=== PATIENT | female | born 1960 | race Caucasian/White ===

== ENCOUNTER 2021-06-23 22:51 | Emergency (ER) | payer MEDICAID ==
[~2021-06-23] VITALS: Ht 157.5 cm; Wt 81.6 kg
[2021-06-23 23:00] VITALS: BP_SYST 143
--- NOTE | 2021-06-23 23:00 | NUR ---
ER examining patient in [facility].
--- NOTE | 2021-06-23 23:00 | NUR ---
Patient triaged and placed in waiting room. VSS and patient appears in no acute distress at this time. Accompanied by FAM MEMBER, awaiting available bed, and MD notified of need for MSE.
[2021-06-24 00:27] LABS: CALCIUM 8.8 mg/dL (8.4-11.0); CREATININE 0.7 mg/dL (0.55-1.30); POTASSIUM 3.6 mmol/L (3.5-5.1)
[2021-06-24 00:36] LABS: BASOPHILS % (AUTO) 0.7 % (0.0-2.0); EOSINOPHILS # (AUTO) 0.1 K/uL (0.0-0.4); EOSINOPHILS % (AUTO) 2.4 % (0.0-4.0); HEMATOCRIT 44.1 % (36-48); HEMOGLOBIN 15.1 g/dL (12.0-16.0); LYMPHOCYTES % (AUTO) 15.7 % (20.5-51.5); MEAN CORPUSCULAR HEMOGLOBIN 30 pg (27-31); MEAN CORPUSCULAR HGB CONC 34 % (32-36); MEAN CORPUSCULAR VOLUME 87 fL (79.0-98.0); MONOCYTES # (AUTO) 0.8 K/uL (0.0-1.0); MONOCYTES % (AUTO) 12.1 % (1.7-9.3); NEUTROPHILS # (AUTO) 4.4 K/uL (1.8-7.7); NEUTROPHILS % (AUTO) 69.1 % (40.0-70.0); PLATELET COUNT (AUTO) 122 K/uL (130-430); RED BLOOD CELL COUNT(AUTO) 5.08 MIL/uL (4.2-6.2); RED CELL DISTRIBUTION WIDTH 13.9 % (9.0-15.0); WHITE BLOOD COUNT (AUTO) 6.3 K/uL (4.8-10.8)
[2021-06-24] MEDS ORDERED: cefTRIAXone 1 GM in LIDOCAINE 1%, 20 ML MDV 2.1 ML IM ONE (03:00)
[2021-06-24 03:31] LABS: BILIRUBIN,URINE NEGATIVE (NEGATIVE); BLOOD, URINE TRACE (NEGATIVE); CLARITY/URINE CLEAR (CLEAR); COLOR,URINE YELLOW (YELLOW); GLUCOSE,URINE 3+ (NEGATIVE); KETONES,URINE NEGATIVE (NEGATIVE); LEUKOCYTE ESTERASE ,URINE NEGATIVE (NEGATIVE); NITRITE, URINE NEGATIVE (NEGATIVE); PROTEIN URINE 1+ (NEGATIVE)
[2021-06-24 03:46] LABS: BACTERIA,URINE RARE /HPF (None Seen); WBC,URINE 0-3 /HPF (0-3)
[2021-06-24 03:47] LABS: MUCUS,URINE None Seen /LPF (None Seen)
[2021-06-24] MEDS ORDERED: CEPH-548 PO (04:02)
[2021-06-24] MEDS ORDERED: NAPR-690 PO (04:12)
--- NOTE | 2021-06-24 04:20 | NUR ---
Note undone in EDM - 06/24/21 at 0539 by [email or web address] Patient given written and verbal discharge instructions by Dr Waterman and verbalizes understanding. ER discussed with patient the results and treatment provided. Patient in stable condition. ID arm band removed. Rx of Cephalexin given. Patient educated on pain management and to follow up with PMD. Pain Scale 0/10. Opportunity for questions provided and answered. Medication side effect fact sheet provided.
--- NOTE | 2021-06-24 04:20 | NUR ---
Patient given written and verbal discharge instructions by Dr Waterman and verbalizes understanding. ER MD discussed with patient the results and treatment provided. Patient in stable condition. ID arm band removed. Rx of Cephalexin given. Patient educated on pain management and to follow up with PMD. Pain Scale 5/10. Opportunity for questions provided and answered. Medication side effect fact sheet provided.
[2021-06-24 04:22] VITALS: BP_SYST 139
== END 2021-06-24 04:20 | disposition home or self-care (01) ==
LOC: SED 22:51
DX: M17.11 Unilateral primary osteoarthritis, right knee (principal); M25.561 Pain in right knee; L03.116 Cellulitis of left lower limb; L03.115 Cellulitis of right lower limb; R60.0 Localized edema; E11.65 Type 2 diabetes mellitus with hyperglycemia; I11.0 Hypertensive heart disease with heart failure; I50.9 Heart failure, unspecified; J44.9 Chronic obstructive pulmonary disease, unspecified
CPT/HCPCS: 36415; 71045; 73560; 80053; 81000; 82550; 83880; 84484; 85025; 87040; 96372; 99284; J0696; J2001

== ENCOUNTER 2023-07-20 13:13 | Inpatient (IN) | payer MEDICAID, OTHER ==
[~2023-07-20] VITALS: Ht 157.5 cm; Wt 77.4 kg
[~2023-07-20 13:13] MED LIST: CEPH-548 PO; NAPR-690 PO
[2023-07-20 13:38] VITALS: BP_SYST 111; PULSE 100; RESP 20; TEMP 97; O2SAT 99
[2023-07-20] MEDS ORDERED: OXYB5TAB16 PO (13:38)
[2023-07-20] MEDS ORDERED: METO-540 PO (13:38)
[2023-07-20] MEDS ORDERED: INSU100I26 SUBCUT (13:38)
[2023-07-20] MEDS ORDERED: SERT-436 PO (13:38)
[2023-07-20] MEDS ORDERED: [UNRECOGNIZED DRUG - CODE] (13:38)
[2023-07-20] MEDS ORDERED: DAPA10TA PO (13:38)
[2023-07-20] MEDS ORDERED: GLIP5TAB13 PO (13:38)
[2023-07-20] MEDS: NACL 0.9% 1,000 ML IV SCH (14:00)
[2023-07-20 14:18] LABS: BASOPHILS % (AUTO) 0.1 % (0.0-2.0); EOSINOPHILS # (AUTO) 0.1 K/uL (0.0-0.4); EOSINOPHILS % (AUTO) 0.7 % (0.0-4.0); HEMATOCRIT 48.8 % (36-48); HEMOGLOBIN 15.8 g/dL (12.0-16.0); LYMPHOCYTES # (AUTO) 0.7 K/uL (1.0-5.5); LYMPHOCYTES % (AUTO) 7.8 % (20.5-51.5); MEAN CORPUSCULAR HEMOGLOBIN 29 pg (27-31); MEAN CORPUSCULAR HGB CONC 32 % (32-36); MEAN CORPUSCULAR VOLUME 90 fL (79.0-98.0); MONOCYTES # (AUTO) 0.6 K/uL (0.0-1.0); MONOCYTES % (AUTO) 5.9 % (1.7-9.3); NEUTROPHILS # (AUTO) 8.1 K/uL (1.8-7.7); NEUTROPHILS % (AUTO) 85.5 % (40.0-70.0); PLATELET COUNT (AUTO) 120 K/uL (130-430); RED BLOOD CELL COUNT(AUTO) 5.43 MIL/uL (4.2-6.2); RED CELL DISTRIBUTION WIDTH 15.7 % (9.0-15.0); WHITE BLOOD COUNT (AUTO) 9.4 K/uL (4.8-10.8)
[2023-07-20 14:49] LABS: ALBUMIN 2.3 g/dL (3.4-4.8); CALCIUM 9.2 mg/dL (8.4-11.0); CREATININE 1.4 mg/dL (0.55-1.30); POTASSIUM 3.6 mmol/L (3.5-5.1); TOTAL BILIRUBIN 0.9 mg/dL (0.0-1.0); TOTAL PROTEIN, SERUM 6.9 g/dL (6.4-8.3)
[2023-07-20] MEDS: INSULIN REGULAR, HUMAN 10 UNITS/0.1 ML, 3 ML VIAL IVP ONE ×2 (15:25→21:46)
[2023-07-20] MEDS: CLINDAMYCIN 600 MG in D5W 50 ML IV ONE (16:46)
[2023-07-20 19:02] LABS: BILIRUBIN,URINE NEGATIVE (NEGATIVE); COLOR,URINE YELLOW (YELLOW); GLUCOSE,URINE 3+ (NEGATIVE); KETONES,URINE NEGATIVE (NEGATIVE); LEUKOCYTE ESTERASE ,URINE 1+ (NEGATIVE); NITRITE, URINE NEGATIVE (NEGATIVE); PROTEIN URINE NEGATIVE (NEGATIVE); UROBILINOGEN,URINE 0.2 (0.2-1.0)
[2023-07-20] MEDS ORDERED: INSULIN REGULAR, HUMAN 10 UNITS/0.1 ML, 3 ML VIAL ONE ×2 (19:02→21:42)
[2023-07-20] MEDS: INSULIN REGULAR, HUMAN 100 UNITS/ML, 3 ML VIAL (humuLIN R) SUBCUT PRN (19:03)
[2023-07-20 19:09] LABS: BLOOD, URINE TRACE (NEGATIVE)
[2023-07-20 19:10] LABS: BACTERIA,URINE FEW /HPF (None Seen); CLARITY/URINE HAZY (CLEAR); RBC,URINE 0-3 /HPF (0-3)
[2023-07-20 19:11] LABS: MUCUS,URINE None Seen /LPF (None Seen); YEAST,URINE Few /HPF (None Seen)
[2023-07-20] MEDS ORDERED: ACETAMINOPHEN 325 MG TABLET PO PRN (22:00)
[2023-07-20] MEDS ORDERED: HYDROcodone/ACETAMIN 10-325 MG TAB PO PRN (22:00)
[2023-07-20] MEDS ORDERED: HYDROcodone/ACETAMIN 5-325 MG TAB (NORCO/ VICODIN) PO PRN (22:00)
[2023-07-20] MEDS ORDERED: LORazepam 2 MG/ML VIAL IVP PRN (22:00)
[2023-07-20] MEDS ORDERED: ONDANSETRON HCL 4 MG/2 ML VIAL IVP PRN (22:00)
[2023-07-20] MEDS ORDERED: NALOXONE HCL 0.4 MG/ML AMP (NARCAN) IVP PRN ×2 (22:00)
[2023-07-21 03:02] VITALS: BP_SYST 107; PULSE 86; RESP 16; TEMP 97.8; O2SAT 99
[2023-07-21 04:19] LABS: BASOPHILS % (AUTO) 0.1 % (0.0-2.0); EOSINOPHILS # (AUTO) 0.3 K/uL (0.0-0.4); EOSINOPHILS % (AUTO) 1.9 % (0.0-4.0); HEMATOCRIT 44.2 % (36-48); LYMPHOCYTES # (AUTO) 0.9 K/uL (1.0-5.5); LYMPHOCYTES % (AUTO) 5.9 % (20.5-51.5); MEAN CORPUSCULAR HEMOGLOBIN 29 pg (27-31); MEAN CORPUSCULAR HGB CONC 34 % (32-36); MEAN CORPUSCULAR VOLUME 85 fL (79.0-98.0); MONOCYTES # (AUTO) 0.9 K/uL (0.0-1.0); NEUTROPHILS # (AUTO) 13.4 K/uL (1.8-7.7); NEUTROPHILS % (AUTO) 86.1 % (40.0-70.0); PLATELET COUNT (AUTO) 109 K/uL (130-430); RED BLOOD CELL COUNT(AUTO) 5.19 MIL/uL (4.2-6.2); RED CELL DISTRIBUTION WIDTH 15.1 % (9.0-15.0); WHITE BLOOD COUNT (AUTO) 15.5 K/uL (4.8-10.8)
[2023-07-21] MEDS: CLINDAMYCIN 600 MG in D5W 50 ML IV ONE (04:27)
[2023-07-21] MEDS: CLINDAMYCIN 600 mg/50mL D5W 50 ML IV ONE (04:41)
[2023-07-21 04:59] LABS: CALCIUM 9.3 mg/dL (8.4-11.0); CREATININE 0.84 mg/dL (0.55-1.30); POTASSIUM 3.5 mmol/L (3.5-5.1)
[2023-07-21] MEDS: metFORMIN HCL 500 MG TABLET PO SCH (08:00)
[2023-07-21] MEDS ORDERED: NON-FORMULARY MEDICATION (Dapagliflozin Propanediol (Farxiga) 1 TAB) PO SCH (09:00)
[2023-07-21 09:02] VITALS: BP_SYST 111; PULSE 71; RESP 18; TEMP 97.7; O2SAT 96
[2023-07-21] MEDS: METOPROLOL SUCCINATE 25 MG TAB.SR.24H (TOPROL XL) PO SCH (10:39)
[2023-07-21] MEDS: SERTRALINE HCL 50 MG TABLET PO SCH (10:39)
[2023-07-21] MEDS: oxyBUTYnin chloride 5 MG TABLET PO SCH (10:39)
[2023-07-21] MEDS: INSULIN GLARGINE 100 UNITS/ML, 10 ML VIAL SUBCUT SCH (10:43)
[2023-07-21 11:20] VITALS: BP_SYST 106; PULSE 68; RESP 16; TEMP 96.9; O2SAT 97
[2023-07-21] MEDS: EMPAGLIFLOZIN 10 MG TABLET PO SCH (12:05)
[2023-07-21] MEDS ORDERED: CALC1CAP19 PO (12:16)
[2023-07-21] MEDS: CLINDAMYCIN 600 MG in D5W 50 ML IV SCH (12:18)
[2023-07-21 15:24] VITALS: BP_SYST 110; PULSE 82; RESP 16; TEMP 97.1; O2SAT 96
[2023-07-21 20:00] VITALS: BP_SYST 108; PULSE 82; RESP 20; TEMP 97.8; O2SAT 97
[2023-07-22 01:21] VITALS: BP_SYST 110; PULSE 78; RESP 17; TEMP 97; O2SAT 98
[2023-07-22] MEDS: cefTRIAXone 1 GM VIAL ONE (04:38)
[2023-07-22] MEDS: cefTRIAXone 1 GM in D5W 50 ML IV SCH (04:46)
[2023-07-22 06:08] LABS: BASOPHILS % (AUTO) 0.1 % (0.0-2.0); EOSINOPHILS # (AUTO) 0.2 K/uL (0.0-0.4); EOSINOPHILS % (AUTO) 1.5 % (0.0-4.0); HEMATOCRIT 44.8 % (36-48); HEMOGLOBIN 14.9 g/dL (12.0-16.0); LYMPHOCYTES % (AUTO) 8.8 % (20.5-51.5); MEAN CORPUSCULAR HEMOGLOBIN 29 pg (27-31); MEAN CORPUSCULAR HGB CONC 33 % (32-36); MEAN CORPUSCULAR VOLUME 86 fL (79.0-98.0); MONOCYTES # (AUTO) 1.1 K/uL (0.0-1.0); MONOCYTES % (AUTO) 9.2 % (1.7-9.3); NEUTROPHILS # (AUTO) 9.4 K/uL (1.8-7.7); NEUTROPHILS % (AUTO) 80.4 % (40.0-70.0); PLATELET COUNT (AUTO) 118 K/uL (130-430); RED BLOOD CELL COUNT(AUTO) 5.18 MIL/uL (4.2-6.2); RED CELL DISTRIBUTION WIDTH 15.7 % (9.0-15.0); WHITE BLOOD COUNT (AUTO) 11.7 K/uL (4.8-10.8)
[2023-07-22 08:00] VITALS: BP_SYST 109; PULSE 74; RESP 16; TEMP 98; O2SAT 100
[2023-07-22 08:07] LABS: ERYTHROCYTE SEDIMENTATION RATE 34 MM/HR (0-20)
[2023-07-22 08:21] LABS: CALCIUM 7.8 mg/dL (8.4-11.0); CREATININE 0.78 mg/dL (0.55-1.30)
[2023-07-22 20:00] VITALS: O2SAT 95
[2023-07-23 00:57] VITALS: BP_SYST 121; PULSE 63; RESP 18; TEMP 96.7; O2SAT 91
[2023-07-23 07:18] LABS: BARBITURATE, URINE NEGATIVE (NEG <=200); BENZODIAZEPINE, URINE NEGATIVE (NEG <=150); CANNABINOID, URINE NEGATIVE (NEG <=50); COCAINE, URINE NEGATIVE (NEG <=150); METHAMPHETAMINES SCREEN,URINE POSITIVE (NEG <=500); OPIATE, URINE NEGATIVE (NEG <=100); PHENCYCLIDINE SCREEN,URINE NEGATIVE (NEG <=25); URINE AMPHETAMINE NEGATIVE (NEG <=500); URINE METHADONE NEGATIVE (NEG <=200); URINE OXYCODONE SCREEN NEGATIVE (NEG <=100)
[2023-07-23 07:19] LABS: UR TRICYCLIC ANTIDEPRESSANTS NEGATIVE (NEG <=300)
[2023-07-23 08:00] VITALS: O2SAT 94
[2023-07-23 10:20] LABS: CREATININE 0.81 mg/dL (0.55-1.30); POTASSIUM 3.8 mmol/L (3.5-5.1)
[2023-07-23 10:21] LABS: BASOPHILS # (AUTO) 0.1 K/uL (0.0-0.2); BASOPHILS % (AUTO) 0.6 % (0.0-2.0); EOSINOPHILS # (AUTO) 0.2 K/uL (0.0-0.4); HEMATOCRIT 42.7 % (36-48); HEMOGLOBIN 14.2 g/dL (12.0-16.0); LYMPHOCYTES % (AUTO) 8.8 % (20.5-51.5); MEAN CORPUSCULAR HEMOGLOBIN 29 pg (27-31); MEAN CORPUSCULAR HGB CONC 33 % (32-36); MEAN CORPUSCULAR VOLUME 87 fL (79.0-98.0); MONOCYTES % (AUTO) 8.9 % (1.7-9.3); NEUTROPHILS # (AUTO) 8.9 K/uL (1.8-7.7); NEUTROPHILS % (AUTO) 79.7 % (40.0-70.0); PLATELET COUNT (AUTO) 85 K/uL (130-430); RED BLOOD CELL COUNT(AUTO) 4.93 MIL/uL (4.2-6.2); RED CELL DISTRIBUTION WIDTH 15.5 % (9.0-15.0); WHITE BLOOD COUNT (AUTO) 11.1 K/uL (4.8-10.8)
[2023-07-23 11:16] VITALS: BP_SYST 122; PULSE 52; RESP 16; TEMP 97; O2SAT 100
[2023-07-23 15:57] VITALS: BP_SYST 124; PULSE 59; RESP 18; TEMP 97.4; O2SAT 99
[2023-07-23] MEDS: NORMAL SALINE 5 ML DISP.SYRIN IVF SCH (17:08)
[2023-07-23 20:00] VITALS: BP_SYST 115; PULSE 74; RESP 18; TEMP 97.8; O2SAT 97
[2023-07-24] VITALS (7 sets, daily range): BP systolic 109–126; PULSE 61–89; RESP 18–20; TEMP 96.6–98.4; O2SAT 96–99
[2023-07-24 08:03] LABS: BASOPHILS % (AUTO) 0.3 % (0.0-2.0); EOSINOPHILS # (AUTO) 0.2 K/uL (0.0-0.4); HEMATOCRIT 46.1 % (36-48); HEMOGLOBIN 15.4 g/dL (12.0-16.0); LYMPHOCYTES # (AUTO) 1.2 K/uL (1.0-5.5); LYMPHOCYTES % (AUTO) 10.7 % (20.5-51.5); MEAN CORPUSCULAR HEMOGLOBIN 29 pg (27-31); MEAN CORPUSCULAR HGB CONC 33 % (32-36); MEAN CORPUSCULAR VOLUME 88 fL (79.0-98.0); MONOCYTES # (AUTO) 1.2 K/uL (0.0-1.0); MONOCYTES % (AUTO) 10.6 % (1.7-9.3); NEUTROPHILS # (AUTO) 8.3 K/uL (1.8-7.7); NEUTROPHILS % (AUTO) 76.4 % (40.0-70.0); PLATELET COUNT (AUTO) 106 K/uL (130-430); RED BLOOD CELL COUNT(AUTO) 5.25 MIL/uL (4.2-6.2); RED CELL DISTRIBUTION WIDTH 15.8 % (9.0-15.0); WHITE BLOOD COUNT (AUTO) 10.9 K/uL (4.8-10.8)
[2023-07-24 08:16] LABS: ERYTHROCYTE SEDIMENTATION RATE 62 MM/HR (0-20)
[2023-07-24 08:17] LABS: CALCIUM 8.7 mg/dL (8.4-11.0); CREATININE 0.79 mg/dL (0.55-1.30); PHOSPHORUS 2.8 mg/dL (2.7-4.5); POTASSIUM 4.6 mmol/L (3.5-5.1); TOTAL BILIRUBIN 0.7 mg/dL (0.0-1.0); TOTAL PROTEIN, SERUM 6.8 g/dL (6.4-8.3)
[2023-07-24] MEDS: CHOLECALCIFEROL (VITAMIN D3) 5,000 UNIT TABLET PO ONE (10:57)
[2023-07-25] VITALS: BP_SYST 106; PULSE 86; RESP 18; TEMP 97.7; O2SAT 99
[2023-07-25 04:00] VITALS: BP_SYST 122; PULSE 89; RESP 20; TEMP 97.7; O2SAT 98
[2023-07-25 07:09] LABS: BASOPHILS % (AUTO) 0.4 % (0.0-2.0); EOSINOPHILS # (AUTO) 0.3 K/uL (0.0-0.4); EOSINOPHILS % (AUTO) 2.5 % (0.0-4.0); HEMATOCRIT 41.2 % (36-48); HEMOGLOBIN 13.7 g/dL (12.0-16.0); LYMPHOCYTES # (AUTO) 1.1 K/uL (1.0-5.5); LYMPHOCYTES % (AUTO) 10.9 % (20.5-51.5); MEAN CORPUSCULAR HEMOGLOBIN 29 pg (27-31); MEAN CORPUSCULAR HGB CONC 33 % (32-36); MEAN CORPUSCULAR VOLUME 87 fL (79.0-98.0); MONOCYTES # (AUTO) 1.4 K/uL (0.0-1.0); MONOCYTES % (AUTO) 13.7 % (1.7-9.3); NEUTROPHILS # (AUTO) 7.6 K/uL (1.8-7.7); NEUTROPHILS % (AUTO) 72.5 % (40.0-70.0); PLATELET COUNT (AUTO) 128 K/uL (130-430); RED BLOOD CELL COUNT(AUTO) 4.75 MIL/uL (4.2-6.2); RED CELL DISTRIBUTION WIDTH 15.7 % (9.0-15.0); WHITE BLOOD COUNT (AUTO) 10.5 K/uL (4.8-10.8)
[2023-07-25 07:14] LABS: ERYTHROCYTE SEDIMENTATION RATE 45 MM/HR (0-20)
[2023-07-25 07:21] LABS: CALCIUM 8.2 mg/dL (8.4-11.0); CREATININE 0.65 mg/dL (0.55-1.30); POTASSIUM 3.8 mmol/L (3.5-5.1)
[2023-07-25 08:12] VITALS: BP_SYST 125; PULSE 73; RESP 20; TEMP 96.1; O2SAT 96
[2023-07-25] MEDS ORDERED: INSULIN GLARGINE 100 UNITS/ML, 10 ML VIAL SUBCUT SCH (09:00)
[2023-07-25] MEDS: CHOLECALCIFEROL (VITAMIN D3) 5,000 UNIT TABLET PO SCH (09:42)
[2023-07-25] MEDS: INSULIN GLARGINE 100 UNITS/ML, 10 ML VIAL SUBCUT SCH (10:50)
[2023-07-25 11:29] VITALS: BP_SYST 126; PULSE 80; RESP 17; TEMP 97.6; O2SAT 100
[2023-07-25 16:48] VITALS: BP_SYST 146; PULSE 83; RESP 16; TEMP 98; O2SAT 96
[2023-07-25 20:00] VITALS: BP_SYST 106; BP_SYST 126; PULSE 65; PULSE 89; RESP 18; TEMP 97.7; O2SAT 99
[2023-07-26] VITALS (7 sets, daily range): BP systolic 108–137; PULSE 63–86; RESP 18–20; TEMP 96.2–98.1; O2SAT 97–100
[2023-07-26 07:09] LABS: ERYTHROCYTE SEDIMENTATION RATE 54 MM/HR (0-20)
[2023-07-26 07:14] LABS: BASOPHILS % (AUTO) 0.5 % (0.0-2.0); EOSINOPHILS # (AUTO) 0.1 K/uL (0.0-0.4); EOSINOPHILS % (AUTO) 1.4 % (0.0-4.0); HEMATOCRIT 41.7 % (36-48); LYMPHOCYTES % (AUTO) 10.8 % (20.5-51.5); MEAN CORPUSCULAR HEMOGLOBIN 29 pg (27-31); MEAN CORPUSCULAR HGB CONC 34 % (32-36); MEAN CORPUSCULAR VOLUME 87 fL (79.0-98.0); MONOCYTES # (AUTO) 1.2 K/uL (0.0-1.0); MONOCYTES % (AUTO) 13.6 % (1.7-9.3); NEUTROPHILS # (AUTO) 6.6 K/uL (1.8-7.7); NEUTROPHILS % (AUTO) 73.7 % (40.0-70.0); PLATELET COUNT (AUTO) 123 K/uL (130-430); RED BLOOD CELL COUNT(AUTO) 4.81 MIL/uL (4.2-6.2); RED CELL DISTRIBUTION WIDTH 15.1 % (9.0-15.0)
[2023-07-26 07:18] LABS: CALCIUM 7.8 mg/dL (8.4-11.0); CREATININE 0.54 mg/dL (0.55-1.30)
[2023-07-26] MEDS: INSULIN GLARGINE 100 UNITS/ML, 10 ML VIAL SUBCUT SCH (09:25)
[2023-07-27] VITALS (8 sets, daily range): BP systolic 108–132; PULSE 72–86; RESP 16–19; TEMP 97.2–98.1; O2SAT 91–100
[2023-07-27 06:18] LABS: ERYTHROCYTE SEDIMENTATION RATE 35 MM/HR (0-20)
[2023-07-27 06:31] LABS: BASOPHILS % (AUTO) 0.5 % (0.0-2.0); EOSINOPHILS # (AUTO) 0.2 K/uL (0.0-0.4); HEMATOCRIT 40.7 % (36-48); HEMOGLOBIN 13.6 g/dL (12.0-16.0); LYMPHOCYTES # (AUTO) 1.5 K/uL (1.0-5.5); LYMPHOCYTES % (AUTO) 16.1 % (20.5-51.5); MEAN CORPUSCULAR HEMOGLOBIN 29 pg (27-31); MEAN CORPUSCULAR HGB CONC 33 % (32-36); MEAN CORPUSCULAR VOLUME 87 fL (79.0-98.0); MONOCYTES # (AUTO) 1.1 K/uL (0.0-1.0); MONOCYTES % (AUTO) 12.5 % (1.7-9.3); NEUTROPHILS # (AUTO) 6.2 K/uL (1.8-7.7); NEUTROPHILS % (AUTO) 68.9 % (40.0-70.0); PLATELET COUNT (AUTO) 149 K/uL (130-430); RED BLOOD CELL COUNT(AUTO) 4.67 MIL/uL (4.2-6.2); RED CELL DISTRIBUTION WIDTH 15.5 % (9.0-15.0); WHITE BLOOD COUNT (AUTO) 9.1 K/uL (4.8-10.8)
[2023-07-27 06:58] LABS: ALBUMIN 1.7 g/dL (3.4-4.8); CALCIUM 8.4 mg/dL (8.4-11.0); CREATININE 0.69 mg/dL (0.55-1.30); POTASSIUM 4.2 mmol/L (3.5-5.1); TOTAL BILIRUBIN 0.7 mg/dL (0.0-1.0); TOTAL PROTEIN, SERUM 6.2 g/dL (6.4-8.3)
[2023-07-27] MEDS: levoFLOXacin 500 MG TABLET PO SCH (10:19)
[2023-07-28] VITALS: BP_SYST 110; PULSE 72; RESP 16; TEMP 97.2; O2SAT 94
[2023-07-28 04:28] LABS: ERYTHROCYTE SEDIMENTATION RATE 44 MM/HR (0-20)
[2023-07-28 04:31] LABS: BASOPHILS # (AUTO) 0.1 K/uL (0.0-0.2); BASOPHILS % (AUTO) 0.7 % (0.0-2.0); EOSINOPHILS # (AUTO) 0.1 K/uL (0.0-0.4); EOSINOPHILS % (AUTO) 1.4 % (0.0-4.0); HEMATOCRIT 40.1 % (36-48); HEMOGLOBIN 13.4 g/dL (12.0-16.0); LYMPHOCYTES # (AUTO) 1.2 K/uL (1.0-5.5); LYMPHOCYTES % (AUTO) 12.8 % (20.5-51.5); MEAN CORPUSCULAR HEMOGLOBIN 29 pg (27-31); MEAN CORPUSCULAR HGB CONC 33 % (32-36); MEAN CORPUSCULAR VOLUME 87 fL (79.0-98.0); MONOCYTES # (AUTO) 1.1 K/uL (0.0-1.0); MONOCYTES % (AUTO) 12.2 % (1.7-9.3); NEUTROPHILS # (AUTO) 6.8 K/uL (1.8-7.7); NEUTROPHILS % (AUTO) 72.9 % (40.0-70.0); PLATELET COUNT (AUTO) 149 K/uL (130-430); RED CELL DISTRIBUTION WIDTH 15.7 % (9.0-15.0); WHITE BLOOD COUNT (AUTO) 9.3 K/uL (4.8-10.8)
[2023-07-28 04:57] LABS: CALCIUM 8.3 mg/dL (8.4-11.0); CREATININE 0.73 mg/dL (0.55-1.30); POTASSIUM 4.2 mmol/L (3.5-5.1)
[2023-07-28 08:21] VITALS: BP_SYST 123; PULSE 75; RESP 12; TEMP 97.5; O2SAT 96
[2023-07-28 10:56] VITALS: O2SAT 96
[2023-07-28 11:27] VITALS: BP_SYST 133; PULSE 74; RESP 16; TEMP 97; O2SAT 99
[2023-07-28 15:12] VITALS: BP_SYST 122; PULSE 71; RESP 16; TEMP 97.6; O2SAT 97
[2023-07-28 20:00] VITALS: BP_SYST 122; PULSE 79; RESP 18; TEMP 97.8; O2SAT 99
[2023-07-29] VITALS: BP_SYST 120; PULSE 74; RESP 18; TEMP 97.5; O2SAT 98
[2023-07-29 06:36] LABS: BASOPHILS # (AUTO) 0.1 K/uL (0.0-0.2); BASOPHILS % (AUTO) 0.8 % (0.0-2.0); EOSINOPHILS # (AUTO) 0.1 K/uL (0.0-0.4); EOSINOPHILS % (AUTO) 1.7 % (0.0-4.0); HEMATOCRIT 40.4 % (36-48); HEMOGLOBIN 13.5 g/dL (12.0-16.0); LYMPHOCYTES % (AUTO) 12.5 % (20.5-51.5); MEAN CORPUSCULAR HEMOGLOBIN 29 pg (27-31); MEAN CORPUSCULAR HGB CONC 33 % (32-36); MEAN CORPUSCULAR VOLUME 87 fL (79.0-98.0); MONOCYTES # (AUTO) 0.8 K/uL (0.0-1.0); MONOCYTES % (AUTO) 10.4 % (1.7-9.3); NEUTROPHILS # (AUTO) 5.7 K/uL (1.8-7.7); NEUTROPHILS % (AUTO) 74.6 % (40.0-70.0); PLATELET COUNT (AUTO) 147 K/uL (130-430); RED BLOOD CELL COUNT(AUTO) 4.64 MIL/uL (4.2-6.2); WHITE BLOOD COUNT (AUTO) 7.6 K/uL (4.8-10.8)
[2023-07-29 07:41] LABS: CALCIUM 8.2 mg/dL (8.4-11.0); CREATININE 0.64 mg/dL (0.55-1.30); POTASSIUM 4.1 mmol/L (3.5-5.1)
[2023-07-29 07:45] LABS: ERYTHROCYTE SEDIMENTATION RATE 48 MM/HR (0-20)
[2023-07-29 08:57] VITALS: BP_SYST 122; PULSE 80; RESP 18; TEMP 97
[2023-07-29 12:38] VITALS: BP_SYST 127; PULSE 82; RESP 18; TEMP 98; O2SAT 99
[2023-07-29 16:30] VITALS: BP_SYST 122; PULSE 86; RESP 18; TEMP 98; O2SAT 99
[2023-07-29 16:56] VITALS: BP_SYST 122; PULSE 86; RESP 18; TEMP 98; O2SAT 98
== END 2023-07-29 17:10 | disposition home or self-care (01) | DRG 871 ==
LOC: SED 13:13 → SMU 16:04
PROVIDERS: ADMIT Preventive Medicine Preventive Medicine/Occupational Environmental Medicine; ATTEND Preventive Medicine Preventive Medicine/Occupational Environmental Medicine
DX: A41.9 Sepsis, unspecified organism (principal); E43 Unspecified severe protein-calorie malnutrition; L03.116 Cellulitis of left lower limb; Z59.00 Homelessness unspecified; N17.9 Acute kidney failure, unspecified; L03.115 Cellulitis of right lower limb; I25.10 Atherosclerotic heart disease of native coronary artery without angina pectoris; J44.9 Chronic obstructive pulmonary disease, unspecified; M81.0 Age-related osteoporosis without current pathological fracture; I11.0 Hypertensive heart disease with heart failure; I50.9 Heart failure, unspecified; E11.65 Type 2 diabetes mellitus with hyperglycemia; E83.52 Hypercalcemia; B96.89 Other specified bacterial agents as the cause of diseases classified elsewhere; Z68.31 Body mass index [BMI] 31.0-31.9, adult; B96.20 Unspecified Escherichia coli [E. coli] as the cause of diseases classified elsewhere; D69.6 Thrombocytopenia, unspecified; I89.0 Lymphedema, not elsewhere classified; K70.30 Alcoholic cirrhosis of liver without ascites; E83.41 Hypermagnesemia; E88.09 Other disorders of plasma-protein metabolism, not elsewhere classified; F32.A Depression, unspecified
CPT/HCPCS: 36415; 71045; 73590; 80048; 80053; 80307; 81000; 81001; 81015; 82306; 82948; 83037; 83605; 83735; 84100; 84443; 85025; 85651; 87040; 87070; 87081; 87086; 87186; 93005; 97110-GP; 97116-GP; 97530-GP; 99285; J0696; J1815; J3490; J7060

== ENCOUNTER 2023-07-29 20:51 | Inpatient (IN) | payer OTHER ==
[~2023-07-29] VITALS: Ht 167.6 cm; Wt 48.3 kg
[~2023-07-29 20:51] MED LIST changes: +CALC1CAP19 PO; -CEPH-548 PO; +DAPA10TA PO; +INSU100I26 SUBCUT; +METO-540 PO; -NAPR-690 PO; +OXYB5TAB16 PO; +SERT-436 PO; +[UNRECOGNIZED DRUG - CODE]
[2023-07-29 21:00] VITALS: BP_SYST 129; PULSE 77; RESP 20; TEMP 98; O2SAT 98
[2023-07-30 00:25] LABS: BASOPHILS # (AUTO) 0.1 K/uL (0.0-0.2); BASOPHILS % (AUTO) 0.6 % (0.0-2.0); EOSINOPHILS # (AUTO) 0.1 K/uL (0.0-0.4); EOSINOPHILS % (AUTO) 0.9 % (0.0-4.0); HEMOGLOBIN 14.4 g/dL (12.0-16.0); LYMPHOCYTES # (AUTO) 0.9 K/uL (1.0-5.5); LYMPHOCYTES % (AUTO) 8.4 % (20.5-51.5); MEAN CORPUSCULAR HEMOGLOBIN 29 pg (27-31); MEAN CORPUSCULAR HGB CONC 33 % (32-36); MEAN CORPUSCULAR VOLUME 87 fL (79.0-98.0); MONOCYTES # (AUTO) 0.9 K/uL (0.0-1.0); MONOCYTES % (AUTO) 9.3 % (1.7-9.3); NEUTROPHILS # (AUTO) 8.3 K/uL (1.8-7.7); NEUTROPHILS % (AUTO) 80.8 % (40.0-70.0); PLATELET COUNT (AUTO) 157 K/uL (130-430); RED BLOOD CELL COUNT(AUTO) 4.93 MIL/uL (4.2-6.2); WHITE BLOOD COUNT (AUTO) 10.2 K/uL (4.8-10.8)
[2023-07-30 00:45] LABS: BILIRUBIN,URINE NEGATIVE (NEGATIVE); BLOOD, URINE NEGATIVE (NEGATIVE); CLARITY/URINE SL CLOUDY (CLEAR); COLOR,URINE YELLOW (YELLOW); GLUCOSE,URINE 3+ (NEGATIVE); KETONES,URINE NEGATIVE (NEGATIVE); NITRITE, URINE NEGATIVE (NEGATIVE); PROTEIN URINE NEGATIVE (NEGATIVE); UROBILINOGEN,URINE 0.2 (0.2-1.0)
[2023-07-30 00:53] LABS: PROTHROMBIN TIME 10.7 SECS (9.5-12.5)
[2023-07-30 01:00] LABS: LEUKOCYTE ESTERASE ,URINE 1+ (NEGATIVE)
[2023-07-30 01:01] LABS: BACTERIA,URINE FEW /HPF (None Seen); RBC,URINE 0-3 /HPF (0-3)
[2023-07-30 01:02] LABS: YEAST,URINE Moderate /HPF (None Seen)
[2023-07-30 01:21] LABS: ALANINE AMINOTRANSFERASE 22 U/L (12-78); ALBUMIN 1.9 g/dL (3.4-4.8); ANION GAP 10 (5-15); ASPARTATE AMINOTRANSFERASE 25 U/L (10-37); CARBON DIOXIDE 22 mmol/L (23-29); CHLORIDE 108 mmol/L (98-107); CREATININE 0.58 mg/dL (0.55-1.30); GFR AFRICAN AMERICAN 135 mL/min (>90); GFR NON AFRICAN-AMERICAN 111 mL/min (>90); GLUCOSE 219 mg/dL (74-106); POTASSIUM 4.1 mmol/L (3.5-5.1); SODIUM SERUM 140 mmol/L (136-145); TOTAL BILIRUBIN 0.7 mg/dL (0.0-1.0); TOTAL PROTEIN, SERUM 6.8 g/dL (6.4-8.3); UREA NITROGEN, BLOOD 16 mg/dL (8-21)
[2023-07-30 01:23] LABS: BILIRUBIN,DIRECT 0.2 mg/dL (0.0-0.3)
[2023-07-30] MEDS ORDERED: D5W 1,000 ML IV PRN (09:45)
[2023-07-30] MEDS ORDERED: DEXTROSE 50% JECT 50 ML DISP.SYRIN IVP PRN (09:45)
[2023-07-30] MEDS ORDERED: GLUCOSE (DEXTROSE) ORAL GEL -Adults PO PRN (09:45)
[2023-07-30] MEDS: NACL 0.9% 1,000 ML IV SCH (10:12)
[2023-07-30] MEDS: INSULIN REGULAR, HUMAN 100 UNITS/ML, 3 ML VIAL (humuLIN R) SUBCUT PRN (21:00)
[2023-07-31] VITALS (7 sets, daily range): BP systolic 107–148; PULSE 72–89; RESP 16–19; TEMP 97.9–99; O2SAT 85–99
[2023-07-31 06:00] LABS: BASOPHILS # (AUTO) 0.1 K/uL (0.0-0.2); EOSINOPHILS # (AUTO) 0.1 K/uL (0.0-0.4); EOSINOPHILS % (AUTO) 1.9 % (0.0-4.0); HEMATOCRIT 38.7 % (36-48); LYMPHOCYTES # (AUTO) 0.9 K/uL (1.0-5.5); LYMPHOCYTES % (AUTO) 13.1 % (20.5-51.5); MEAN CORPUSCULAR HEMOGLOBIN 29 pg (27-31); MEAN CORPUSCULAR HGB CONC 34 % (32-36); MEAN CORPUSCULAR VOLUME 87 fL (79.0-98.0); MONOCYTES # (AUTO) 0.8 K/uL (0.0-1.0); MONOCYTES % (AUTO) 10.7 % (1.7-9.3); NEUTROPHILS # (AUTO) 5.2 K/uL (1.8-7.7); NEUTROPHILS % (AUTO) 73.3 % (40.0-70.0); PLATELET COUNT (AUTO) 124 K/uL (130-430); RED BLOOD CELL COUNT(AUTO) 4.44 MIL/uL (4.2-6.2); RED CELL DISTRIBUTION WIDTH 15.8 % (9.0-15.0); WHITE BLOOD COUNT (AUTO) 7.1 K/uL (4.8-10.8)
[2023-07-31 06:04] LABS: ERYTHROCYTE SEDIMENTATION RATE 53 MM/HR (0-20)
[2023-07-31 06:55] LABS: ALBUMIN 1.8 g/dL (3.4-4.8); CALCIUM 8.3 mg/dL (8.4-11.0); CREATININE 0.59 mg/dL (0.55-1.30); POTASSIUM 4.3 mmol/L (3.5-5.1); TOTAL BILIRUBIN 0.6 mg/dL (0.0-1.0); TOTAL PROTEIN, SERUM 6.3 g/dL (6.4-8.3)
[2023-07-31] MEDS ORDERED: LEVO-62 PO (09:42)
[2023-07-31] MEDS ORDERED: FLUC200T PO (09:42)
[2023-07-31] MEDS: FLUCONAZOLE 200 MG TABLET (DIFLUCAN) PO ONE (10:24)
[2023-08-01] MEDS ORDERED: FLUCONAZOLE 200 MG TABLET (DIFLUCAN) PO SCH (09:00)
== END 2023-07-31 18:59 | disposition home health service (06) | DRG 602 ==
LOC: SED 20:51 → SMU 07-30 04:13
PROVIDERS: ADMIT Preventive Medicine Preventive Medicine/Occupational Environmental Medicine; ATTEND Preventive Medicine Preventive Medicine/Occupational Environmental Medicine
DX: L03.116 Cellulitis of left lower limb (principal); E43 Unspecified severe protein-calorie malnutrition; K50.90 Crohn's disease, unspecified, without complications; N39.0 Urinary tract infection, site not specified; L97.929 Non-pressure chronic ulcer of unspecified part of left lower leg with unspecified severity; L97.919 Non-pressure chronic ulcer of unspecified part of right lower leg with unspecified severity; I13.0 Hypertensive heart and chronic kidney disease with heart failure and stage 1 through stage 4 chronic kidney disease, or unspecified chronic kidney disease; E87.20 Acidosis, unspecified; Z59.00 Homelessness unspecified; Z68.1 Body mass index [BMI] 19.9 or less, adult; E11.65 Type 2 diabetes mellitus with hyperglycemia; L03.115 Cellulitis of right lower limb; E83.52 Hypercalcemia; E88.09 Other disorders of plasma-protein metabolism, not elsewhere classified; I25.10 Atherosclerotic heart disease of native coronary artery without angina pectoris; J44.9 Chronic obstructive pulmonary disease, unspecified; M81.0 Age-related osteoporosis without current pathological fracture; I50.9 Heart failure, unspecified; N18.9 Chronic kidney disease, unspecified; E11.22 Type 2 diabetes mellitus with diabetic chronic kidney disease
CPT/HCPCS: 36415; 71045; 80048; 80053; 80076; 81000; 81001; 81015; 83605; 84484; 85025; 85610; 85651; 85730; 87040; 87081; 87086; 93005; 99285; J1815; J1956

== ENCOUNTER 2023-09-04 23:09 | Inpatient (IN) | payer OTHER, MEDICAID ==
[~2023-09-04] VITALS: Ht 157.5 cm; Wt 86.6 kg
[~2023-09-04 23:09] MED LIST changes: +FLUC200T PO; +LEVO-62 PO
[2023-09-04 23:14] VITALS: BP_SYST 137; PULSE 100; RESP 22; TEMP 97.4; O2SAT 98
[2023-09-05] VITALS (12 sets, daily range): BP systolic 103–125; PULSE 92–104; RESP 18–20; TEMP 97–98.5; O2SAT 92–98
[2023-09-05] MEDS: IPRATROPIUM/ALBUTEROL SULFATE 3 ML AMPUL.NEB (DUONEB) INH STA (00:02)
[2023-09-05] MEDS: methylPREDNISolone SOD SUCC/PF 62.5 MG/ML VIAL IVP ONE (00:24)
[2023-09-05 01:07] LABS: BASOPHILS # (AUTO) 0.1 K/uL (0.0-0.2); BASOPHILS % (AUTO) 0.9 % (0.0-2.0); EOSINOPHILS # (AUTO) 0.3 K/uL (0.0-0.4); EOSINOPHILS % (AUTO) 3.5 % (0.0-4.0); HEMATOCRIT 34.9 % (36-48); HEMOGLOBIN 11.7 g/dL (12.0-16.0); LYMPHOCYTES # (AUTO) 1.2 K/uL (1.0-5.5); LYMPHOCYTES % (AUTO) 15.8 % (20.5-51.5); MEAN CORPUSCULAR HEMOGLOBIN 28 pg (27-31); MEAN CORPUSCULAR HGB CONC 33 % (32-36); MEAN CORPUSCULAR VOLUME 84 fL (79.0-98.0); MONOCYTES # (AUTO) 0.8 K/uL (0.0-1.0); MONOCYTES % (AUTO) 9.7 % (1.7-9.3); NEUTROPHILS # (AUTO) 5.4 K/uL (1.8-7.7); NEUTROPHILS % (AUTO) 70.1 % (40.0-70.0); PLATELET COUNT (AUTO) 194 K/uL (130-430); RED BLOOD CELL COUNT(AUTO) 4.17 MIL/uL (4.2-6.2); RED CELL DISTRIBUTION WIDTH 17.3 % (9.0-15.0); WHITE BLOOD COUNT (AUTO) 7.8 K/uL (4.8-10.8)
[2023-09-05 01:28] LABS: ANION GAP 5 (5-15); CALCIUM 8.2 mg/dL (8.4-11.0); CARBON DIOXIDE 26 mmol/L (23-29); CHLORIDE 103 mmol/L (98-107); CREATININE 0.68 mg/dL (0.55-1.30); GFR AFRICAN AMERICAN 112 mL/min (>90); GLUCOSE 355 mg/dL (74-106); POTASSIUM 4.5 mmol/L (3.5-5.1); SODIUM SERUM 134 mmol/L (136-145); UREA NITROGEN, BLOOD 14 mg/dL (8-21)
[2023-09-05 01:30] LABS: GFR NON AFRICAN-AMERICAN 93 mL/min (>90)
[2023-09-05 01:34] LABS: ALANINE AMINOTRANSFERASE 21 U/L (12-78); ALBUMIN 2.2 g/dL (3.4-4.8); ASPARTATE AMINOTRANSFERASE 7 U/L (10-37); TOTAL BILIRUBIN 0.5 mg/dL (0.0-1.0); TOTAL PROTEIN, SERUM 6.9 g/dL (6.4-8.3)
[2023-09-05] MEDS ORDERED: VANCOMYCIN HCL 1.25 GM/NS 250 ML IV ONE (04:30)
[2023-09-05] MEDS: FUROSEMIDE 20 MG/2 ML VIAL IVP ONE (04:32)
[2023-09-05] MEDS ORDERED: PIPERACILLIN/TAZOBACTAM 4.5 GM/VIAL (ZOSYN) IV ONE (04:47)
[2023-09-05] MEDS: PIPERACILLIN/TAZO 4.5 GM in NS 100 ML IV ONE (04:50)
[2023-09-05 06:29] LABS: COVID19 ANTIGEN SOFIA FIA NEGATIVE (NEGATIVE)
[2023-09-05 06:30] LABS: INFLUENZA TYPE A Negative (NEGATIVE); INFLUENZA TYPE B NEGATIVE (NEGATIVE)
[2023-09-05] MEDS: IPRATROPIUM/ALBUTEROL SULFATE 3 ML AMPUL.NEB (DUONEB) INH SCH ×2 (07:34→15:59)
[2023-09-05] MEDS: INSULIN REGULAR, HUMAN 100 UNITS/ML, 3 ML VIAL (humuLIN R) SUBCUT PRN (08:30)
[2023-09-05] MEDS ORDERED: VITAMIN D3 PO SCH (12:30)
[2023-09-05] MEDS ORDERED: [UNRECOGNIZED DRUG - OTHER] PO SCH (12:30)
[2023-09-05] MEDS ORDERED: INSULIN GLARGINE HUM REC ANLOG 20 UNIT SUBCUT SCH (12:30)
[2023-09-05] MEDS ORDERED: [UNRECOGNIZED DRUG - OTHER] SUBCUT SCH (12:30)
[2023-09-05] MEDS ORDERED: CALCIUM CARBONATE PO SCH (12:30)
[2023-09-05] MEDS ORDERED: TEMAZEPAM 15 MG CAPSULE PO PRN (14:00)
[2023-09-05] MEDS: SERTRALINE HCL 50 MG TABLET PO ONE (14:19)
[2023-09-05] MEDS: oxyBUTYnin chloride 5 MG TABLET PO ONE (14:20)
[2023-09-05] MEDS: ENOXAPARIN SODIUM 40 MG/0.4 ML SYRINGE SUBCUT ONE (14:20)
[2023-09-05] MEDS: AMPICILLIN SODIUM/SULBACTAM NA 3 GM in NS 100 ML IV SCH (14:20)
[2023-09-05] MEDS: FLUCONAZOLE 200 MG TABLET (DIFLUCAN) PO ONE (14:20)
[2023-09-05 16:54] LABS: BILIRUBIN,URINE NEGATIVE (NEGATIVE); BLOOD, URINE NEGATIVE (NEGATIVE); CLARITY/URINE CLEAR (CLEAR); COLOR,URINE YELLOW (YELLOW); GLUCOSE,URINE 3+ (NEGATIVE); KETONES,URINE NEGATIVE (NEGATIVE); LEUKOCYTE ESTERASE ,URINE NEGATIVE (NEGATIVE); NITRITE, URINE NEGATIVE (NEGATIVE); PROTEIN URINE NEGATIVE (NEGATIVE); UROBILINOGEN,URINE 0.2 (0.2-1.0)
[2023-09-05 17:07] LABS: RBC,URINE 0-3 /HPF (0-3); WBC,URINE NONE SEEN /HPF (0-3)
[2023-09-05 17:08] LABS: BACTERIA,URINE FEW /HPF (None Seen); MUCUS,URINE None Seen /LPF (None Seen); YEAST,URINE Few /HPF (None Seen)
[2023-09-05] MEDS: CALCIUM CARBONATE/VITAMIN D3 1 TAB TABLET PO SCH (20:22)
[2023-09-05] MEDS: oxyBUTYnin chloride 5 MG TABLET PO SCH (20:22)
[2023-09-05] MEDS ORDERED: iohexoL 350 mgI/mL, 100 ML INFUS..BTL IV ONE (21:49)
[2023-09-06] VITALS (11 sets, daily range): BP systolic 112–119; PULSE 59–90; RESP 16–18; TEMP 98–99; O2SAT 93–99
[2023-09-06 06:13] LABS: BASOPHILS # (AUTO) 0.1 K/uL (0.0-0.2); BASOPHILS % (AUTO) 0.6 % (0.0-2.0); EOSINOPHILS # (AUTO) 0.1 K/uL (0.0-0.4); HEMATOCRIT 32.3 % (36-48); HEMOGLOBIN 10.8 g/dL (12.0-16.0); LYMPHOCYTES # (AUTO) 1.4 K/uL (1.0-5.5); LYMPHOCYTES % (AUTO) 13.1 % (20.5-51.5); MEAN CORPUSCULAR HEMOGLOBIN 28 pg (27-31); MEAN CORPUSCULAR HGB CONC 33 % (32-36); MEAN CORPUSCULAR VOLUME 84 fL (79.0-98.0); MONOCYTES # (AUTO) 1.1 K/uL (0.0-1.0); MONOCYTES % (AUTO) 9.8 % (1.7-9.3); NEUTROPHILS # (AUTO) 8.2 K/uL (1.8-7.7); NEUTROPHILS % (AUTO) 75.5 % (40.0-70.0); PLATELET COUNT (AUTO) 210 K/uL (130-430); RED BLOOD CELL COUNT(AUTO) 3.85 MIL/uL (4.2-6.2); RED CELL DISTRIBUTION WIDTH 16.9 % (9.0-15.0); WHITE BLOOD COUNT (AUTO) 10.9 K/uL (4.8-10.8)
[2023-09-06 06:45] LABS: ALBUMIN 2.1 g/dL (3.4-4.8); CALCIUM 8.5 mg/dL (8.4-11.0); CREATININE 0.89 mg/dL (0.55-1.30); FREE T4 (FREE THYROXINE) 1.3 ng/dl (0.8-1.5); POTASSIUM 4.1 mmol/L (3.5-5.1); THYROID STIMULATING HORMONE 2.87 uIu/mL (0.36-3.74); TOTAL BILIRUBIN 0.6 mg/dL (0.0-1.0); TOTAL PROTEIN, SERUM 6.5 g/dL (6.4-8.3)
[2023-09-06] MEDS: ENOXAPARIN SODIUM 40 MG/0.4 ML SYRINGE SUBCUT SCH (09:00)
[2023-09-06] MEDS ORDERED: NON-FORMULARY MEDICATION (Dapagliflozin Propanediol (Farxiga) 10 MG) PO SCH (09:00)
[2023-09-06] MEDS: SERTRALINE HCL 50 MG TABLET PO SCH (10:08)
[2023-09-06] MEDS: METOPROLOL SUCCINATE 25 MG TAB.SR.24H (TOPROL XL) PO SCH (10:09)
[2023-09-06] MEDS: INSULIN GLARGINE 100 UNITS/ML, 10 ML VIAL SUBCUT SCH (10:10)
[2023-09-06] MEDS: FLUCONAZOLE 200 MG TABLET (DIFLUCAN) PO SCH (10:10)
[2023-09-06] MEDS: EMPAGLIFLOZIN 10 MG TABLET PO SCH (10:16)
[2023-09-06] MEDS: SILVER SULFADIAZINE 1%, 400 GM 400 GM CREAM.GM. TP ONE (15:05)
[2023-09-06] MEDS: SILVER SULFADIAZINE 1%, 400 GM 400 GM CREAM.GM. TP SCH (21:18)
[2023-09-07] VITALS (11 sets, daily range): BP systolic 114–132; PULSE 65–88; RESP 15–18; TEMP 81–98.6; O2SAT 93–97
[2023-09-07 05:30] LABS: BASOPHILS # (AUTO) 0.1 K/uL (0.0-0.2); BASOPHILS % (AUTO) 0.9 % (0.0-2.0); EOSINOPHILS # (AUTO) 0.2 K/uL (0.0-0.4); EOSINOPHILS % (AUTO) 2.7 % (0.0-4.0); HEMATOCRIT 33.5 % (36-48); LYMPHOCYTES # (AUTO) 1.8 K/uL (1.0-5.5); LYMPHOCYTES % (AUTO) 25.7 % (20.5-51.5); MEAN CORPUSCULAR HEMOGLOBIN 28 pg (27-31); MEAN CORPUSCULAR HGB CONC 33 % (32-36); MEAN CORPUSCULAR VOLUME 84 fL (79.0-98.0); MONOCYTES # (AUTO) 0.7 K/uL (0.0-1.0); MONOCYTES % (AUTO) 10.1 % (1.7-9.3); NEUTROPHILS # (AUTO) 4.3 K/uL (1.8-7.7); NEUTROPHILS % (AUTO) 60.6 % (40.0-70.0); PLATELET COUNT (AUTO) 202 K/uL (130-430); RED CELL DISTRIBUTION WIDTH 17.1 % (9.0-15.0); WHITE BLOOD COUNT (AUTO) 7.1 K/uL (4.8-10.8)
[2023-09-07 05:59] LABS: ALBUMIN 2.2 g/dL (3.4-4.8); CALCIUM 8.5 mg/dL (8.4-11.0); CREATININE 0.85 mg/dL (0.55-1.30); POTASSIUM 4.5 mmol/L (3.5-5.1); TOTAL BILIRUBIN 0.5 mg/dL (0.0-1.0); TOTAL PROTEIN, SERUM 6.5 g/dL (6.4-8.3)
[2023-09-07] MEDS: metFORMIN HCL 500 MG TABLET PO SCH (09:30)
[2023-09-07] MEDS: FUROSEMIDE 20 MG TABLET PO ONE (11:57)
[2023-09-07] MEDS: IPRATROPIUM/ALBUTEROL SULFATE 3 ML AMPUL.NEB (DUONEB) INH SCH (13:00)
[2023-09-08] VITALS (9 sets, daily range): BP systolic 110–124; PULSE 72–87; RESP 16–19; TEMP 97.4–99; O2SAT 92–98
[2023-09-08] MEDS ORDERED: EMPA10TA PO (15:25)
[2023-09-08] MEDS ORDERED: METF-379 PO (15:25)
[2023-09-08] MEDS ORDERED: SILVER SULFADIAZINE TP (15:25)
[2023-09-08] MEDS ORDERED: INSU100V9 SUBCUT (15:25)
[2023-09-08] MEDS ORDERED: DOXY-244 PO (15:25)
[2023-09-09] VITALS (9 sets, daily range): BP systolic 115–140; PULSE 72–117; RESP 16–20; TEMP 97.1–98; O2SAT 92–97
[2023-09-09 08:36] LABS: ABG O2 SAT% ESTIMATE 95.4 % (94.0-100.0); BLOOD GAS BASE EXCESS 0.5 mmol/L (-3.0-3.0); BLOOD GAS HCO3 23.5 mmol/L (21.0-27.0); BLOOD GAS PCO2 33.4 mmHg (35.0-45.0); BLOOD GAS PH 7.465 (7.350-7.450); BLOOD GAS PO2 71.8 mmHg (75.0-100.0)
[2023-09-09 08:37] LABS: ALLEN'S TEST POSITIVE (P)
[2023-09-09] MEDS: ACETAMINOPHEN 325 MG TABLET PO PRN (11:54)
[2023-09-09] MEDS: FUROSEMIDE 20 MG/2 ML VIAL IVP ONE (20:44)
[2023-09-09] MEDS: FUROSEMIDE 20 MG/2 ML VIAL IVP SCH (20:51)
[2023-09-10] VITALS (8 sets, daily range): BP systolic 119–141; PULSE 79–82; RESP 16–20; TEMP 97–97.8; O2SAT 94–96
[2023-09-10] MEDS: DEXAMETHASONE SOD PHOSPHATE 4 MG/ML VIAL IVP ONE ×2 (02:12→02:55)
[2023-09-10] MEDS ORDERED: OSCD500 PO (10:54)
[2023-09-10] MEDS ORDERED: BLOO-1360 XX (10:54)
[2023-09-10] MEDS ORDERED: LOVI40 SUBCUT (10:54)
[2023-09-10] MEDS ORDERED: FURO-150 PO (10:54)
[2023-09-10] MEDS ORDERED: ACET325T PO (10:54)
[2023-09-10] MEDS ORDERED: IPRA3AMP9 INH (10:54)
[2023-09-10] MEDS ORDERED: DOXY100C5 PO (10:56)
[2023-09-10] MEDS ORDERED: VIS25 PO (10:57)
== END 2023-09-10 13:20 | DRG 602 ==
LOC: SED 23:09 → STU 09-05 05:00
PROVIDERS: ADMIT Internal Medicine; ATTEND Internal Medicine
DX: L03.116 Cellulitis of left lower limb (principal); E43 Unspecified severe protein-calorie malnutrition; J96.21 Acute and chronic respiratory failure with hypoxia; J44.1 Chronic obstructive pulmonary disease with (acute) exacerbation; Z59.02 Unsheltered homelessness; L03.115 Cellulitis of right lower limb; E11.9 Type 2 diabetes mellitus without complications; J45.909 Unspecified asthma, uncomplicated; K74.60 Unspecified cirrhosis of liver; D64.9 Anemia, unspecified; F17.200 Nicotine dependence, unspecified, uncomplicated; F32.A Depression, unspecified; I11.0 Hypertensive heart disease with heart failure; I50.9 Heart failure, unspecified; E78.5 Hyperlipidemia, unspecified; Z83.3 Family history of diabetes mellitus; Z82.49 Family history of ischemic heart disease and other diseases of the circulatory system; Z68.34 Body mass index [BMI] 34.0-34.9, adult; Z79.899 Other long term (current) drug therapy
CPT/HCPCS: 36415; 36600; 71045; 71275; 80053; 80061; 81000; 81001; 81015; 82140; 82803; 82948; 83037; 83735; 83880; 84439; 84443; 84484; 85025; 85379; 87040; 93005; 93306; 93970; 94640; 94760; 97110-GP; 97112-GP; 97116-GP; 97530-GP; 99291; G0378; J0295; J1100; J1650; J1815; J1940; J1956; J2543; J2930; J3370; Q9967